=== PATIENT | female | born 1990 | race Caucasian/White ===

== ENCOUNTER 2017-05-25 09:41 | Emergency (ER) | payer SELFPAY ==
[2017-05-25 10:42] LABS: BASOPHILS 0.5 % (0-2); EOSINOPHILS 1.9 % (0-7); HEMATOCRIT 38.2 % (36.0-48.0); IMMATURE GRANULOCYTES 0.2 % (0-5); LYMPHOCYTES 45.5 % (15-50); MCH 29.5 pg (26.0-34.0); MCV 86.6 fL (80.0-100.0); MEAN PLATELET VOLUME 9.1 fL (7.4-10.4); MONOCYTES 7.5 % (2-11); NEUTROPHILS 44.4 % (40-80); RBC 4.41 10x6/uL (4.00-5.40); RDW 12.1 % (11.5-14.5); WBC 4.2 10x3/uL (4.8-10.8)
[2017-05-25 10:48] LABS: PLATELET COUNT 175 10x3/uL (130-400)
[2017-05-25 11:14] LABS: ALBUMIN 4.1 g/dL (3.4-5.0); ALKALINE PHOSPHATASE 24 U/L (46-116); ALT (SGPT) 19 U/L (10-68); BILIRUBIN - TOTAL 0.65 mg/dL (0.2-1.3); CALC OSMOLALITY 276 mosm/kg (275-300); CALCIUM 9.4 mg/dL (8.5-10.1); CARBON DIOXIDE 28.9 mmol/L (21.0-32.0); CHLORIDE - SERUM 102 mmol/L (98-107); CREATININE - SERUM 0.8 mg/dL (0.6-1.3); GLUCOSE 85 mg/dL (74-106); POTASSIUM - SERUM 3.7 mmol/L (3.5-5.1); PROTEIN - SERUM 7.7 g/dL (6.4-8.2); SODIUM 140 mmol/L (136-145); UREA NITROGEN 11 mg/dL (7-18); eGFR NON AFRICAN AMERICAN > 90 mL/min (90-120)
[2017-05-25 11:37] LABS: APPEARANCE CLEAR (CLEAR); BILIRUBIN NEGATIVE (NEGATIVE); COLOR YELLOW (YELLOW); GLUCOSE NEGATIVE (NEGATIVE); KETONE NEGATIVE (NEGATIVE); NITRITE NEGATIVE (NEGATIVE); PROTEIN NEGATIVE (NEGATIVE); SPECIFIC GRAVITY 1.015 (1.005-1.020); UROBILINOGEN NORMAL (NORMAL)
[2017-05-25 11:38] LABS: BACTERIA FEW /hpf (NONE SEEN); EPITHELIAL CELLS OCC /hpf (0-5); MUCUS <1+ /lpf (NONE SEEN); RED CELLS - URINE OCC /hpf (0-5); WHITE CELLS - URINE OCC /hpf (0-5)
== END 2017-05-25 14:58 | disposition home or self-care (01) ==
LOC: D.ER 09:41
PROVIDERS: Emergency Medicine
DX: R33.9 Retention of urine, unspecified (principal); N30.90 Cystitis, unspecified without hematuria; R10.30 Lower abdominal pain, unspecified

== ENCOUNTER 2017-09-24 19:37 | Emergency (ER) | payer MEDICAID ==
[~2017-09-24] VITALS: Ht 175.3 cm; Wt 48.6 kg
[2017-09-24 19:48] VITALS: Ht 175.3 cm; Wt 48.6 kg
[2017-09-24] MEDS ORDERED: CLEOCIN HCL300 MG (19:50)
[2017-09-24] MEDS ORDERED: PERCOCET 5-3251 TAB (19:51)
[2017-09-24] MEDS ORDERED: TORADOL10 MG PO (22:08)
[2017-09-24 22:37] VITALS: BP 117/75
== END 2017-09-24 22:38 | disposition home or self-care (01) ==
LOC: D.ER 19:37
DX: T81.31XA Disruption of external operation (surgical) wound, not elsewhere classified, initial encounter (principal); N32.89 Other specified disorders of bladder

== ENCOUNTER 2019-04-18 17:14 | Observation (INO) | payer OTHER ==
[~2019-04-18] VITALS: Ht 175.3 cm; Wt 48.6 kg
[2019-04-18 00:30] VITALS: BP 102/51
[~2019-04-18 17:14] MED LIST: CLEOCIN HCL300 MG; PERCOCET 5-3251 TAB; TORADOL10 MG PO
[2019-04-18 17:27] VITALS: BP 108/71
[2019-04-18 17:40] LABS: BASOPHILS 0.2 % (0-2); EOSINOPHILS 0.9 % (0-7); HEMATOCRIT 36.5 % (36.0-48.0); HEMOGLOBIN 12.6 g/dL (12-16); IMMATURE GRANULOCYTES 0.2 % (0-5); LYMPHOCYTES 32.3 % (15-50); MCH 29.7 pg (26.0-34.0); MCHC 34.5 g/dL (31.0-37.0); MCV 86.1 fL (80.0-100.0); MEAN PLATELET VOLUME 9.7 fL (7.4-10.4); NEUTROPHILS 59.4 % (40-80); PLATELET COUNT 210 10x3/uL (130-400); RBC 4.24 10x6/uL (4.00-5.40); RDW 12.8 % (11.5-14.5); WBC 5.3 10x3/uL (4.8-10.8)
[2019-04-18 17:49] LABS: APTT 29.4 SECONDS (22.8-39.4); INR 0.97 (0.85-1.17); PROTIME 12.8 SECONDS (11.6-15.0)
[2019-04-18 17:51] LABS: CALC OSMOLALITY 279 mosm/kg (275-300); CALCIUM 9.2 mg/dL (8.5-10.1); CARBON DIOXIDE 26.6 mmol/L (21.0-32.0); CHLORIDE - SERUM 105 mmol/L (98-107); CREATININE - SERUM 0.8 mg/dL (0.6-1.3); GLUCOSE 91 mg/dL (74-106); POTASSIUM - SERUM 3.7 mmol/L (3.5-5.1); SODIUM 141 mmol/L (136-145); UREA NITROGEN 11 mg/dL (7-18); eGFR NON AFRICAN AMERICAN 90 mL/min (90-120)
[2019-04-18 18:08] LABS: ALBUMIN 4.2 g/dL (3.4-5.0); ALKALINE PHOSPHATASE 34 U/L (30-120); ALT (SGPT) 19 U/L (10-68); BILIRUBIN - TOTAL 0.67 mg/dL (0.2-1.3); CKMB 0.4 U/L (0.0-3.6); CREATINE KINASE 113 UL (21-215); MAGNESIUM - SERUM 2.2 mg/dL (1.8-2.4); PROTEIN - SERUM 8.1 g/dL (6.4-8.2)
[2019-04-18 18:10] LABS: TROPONIN-I < 0.017 ng/mL (0.000-0.060)
--- NOTE | 2019-04-18 19:11 | NUR ---
BS REPORT TO TROY GUPTA
[2019-04-18 19:33] VITALS: BP 110/73
--- NOTE | 2019-04-18 19:56 | NUR ---
REPORT CALLED TO GONZÁLEZ, ROOM DIRTY AT THIS TIME.
[2019-04-18 20:30] VITALS: BP 148/81
--- NOTE | 2019-04-18 20:32 | NUR ---
PT'S ROOM ON FLOOR STILL DIRTY AT THIS TIME.
[2019-04-18 20:51] VITALS: BP 101/65
[2019-04-18 23:30] VITALS: BP 88/60; BMI 15.8
[2019-04-19 06:50] LABS: BASOPHILS 0.2 % (0-2); EOSINOPHILS 1.7 % (0-7); HEMATOCRIT 33.8 % (36.0-48.0); HEMOGLOBIN 11.1 g/dL (12-16); IMMATURE GRANULOCYTES 0.2 % (0-5); LYMPHOCYTES 45.9 % (15-50); MCH 28.8 pg (26.0-34.0); MCHC 32.8 g/dL (31.0-37.0); MCV 87.8 fL (80.0-100.0); MEAN PLATELET VOLUME 9.7 fL (7.4-10.4); MONOCYTES 7.9 % (2-11); NEUTROPHILS 44.1 % (40-80); RBC 3.85 10x6/uL (4.00-5.40); RDW 12.8 % (11.5-14.5); WBC 4.1 10x3/uL (4.8-10.8)
[2019-04-19 07:01] LABS: PLATELET COUNT 165 10x3/uL (130-400)
[2019-04-19 07:37] LABS: CALC OSMOLALITY 282 mosm/kg (275-300); CALCIUM 8.8 mg/dL (8.5-10.1); CARBON DIOXIDE 28.1 mmol/L (21.0-32.0); CHLORIDE - SERUM 107 mmol/L (98-107); CREATININE - SERUM 0.9 mg/dL (0.6-1.3); GLUCOSE 101 mg/dL (74-106); MAGNESIUM - SERUM 2.2 mg/dL (1.8-2.4); PHOSPHOROUS 4.8 mg/dL (2.5-4.9); SODIUM 142 mmol/L (136-145); UREA NITROGEN 13 mg/dL (7-18); eGFR NON AFRICAN AMERICAN 78 mL/min (90-120)
[2019-04-19 07:38] LABS: TROPONIN-I < 0.017 ng/mL (0.000-0.060)
[2019-04-19 09:08] VITALS: BP 92/57
[2019-04-19 10:32] LABS: APPEARANCE SL CLDY (CLEAR); BILIRUBIN NEGATIVE (NEGATIVE); COLOR YELLOW (YELLOW); GLUCOSE NEGATIVE (NEGATIVE); KETONE NEGATIVE (NEGATIVE); NITRITE NEGATIVE (NEGATIVE); PROTEIN TRACE mg/dL (NEGATIVE); SPECIFIC GRAVITY 1.025 (1.005-1.020); UROBILINOGEN NORMAL (NORMAL)
[2019-04-19 10:34] LABS: BACTERIA FEW /hpf (NEGATIVE); EPITHELIAL CELLS 0-5 /hpf (0-5); RED CELLS - URINE 0-5 /hpf (0-5)
[2019-04-19 10:40] LABS: UDS - AMPHET NEGATIVE QUAL (NEGATIVE); UDS - BARB NEGATIVE QUAL (NEGATIVE); UDS - BENZO NEGATIVE QUAL (NEGATIVE); UDS - COCAINE NEGATIVE QUAL (NEGATIVE); UDS - OPIATE POSITIVE QUAL (NEGATIVE); UDS - PCP NEGATIVE QUAL (NEGATIVE); UDS - THC NEGATIVE QUAL (NEGATIVE)
[2019-04-19 12:20] VITALS: Ht 175.3 cm; Wt 48.6 kg
[2019-04-19 12:51] VITALS: BP 83/46
[2019-04-19 16:40] VITALS: BP 87/49
--- NOTE | 2019-04-19 17:23 | NUR ---
I have reviewed this patient and I concur with the Shift Assessment completed by the Licensed Practical Nurse today this shift.
[2019-04-19 20:30] VITALS: BP 92/53
[2019-04-20 00:45] VITALS: BP 88/45
[2019-04-20 04:48] VITALS: BP 91/55
[2019-04-20 06:15] LABS: BASOPHILS 0.2 % (0-2); EOSINOPHILS 2.1 % (0-7); HEMATOCRIT 36.1 % (36.0-48.0); HEMOGLOBIN 11.8 g/dL (12-16); IMMATURE GRANULOCYTES 0.2 % (0-5); LYMPHOCYTES 43.2 % (15-50); MCH 29.1 pg (26.0-34.0); MCHC 32.7 g/dL (31.0-37.0); MCV 88.9 fL (80.0-100.0); MEAN PLATELET VOLUME 9.4 fL (7.4-10.4); NEUTROPHILS 47.3 % (40-80); PLATELET COUNT 176 10x3/uL (130-400); RBC 4.06 10x6/uL (4.00-5.40); RDW 12.8 % (11.5-14.5); WBC 4.3 10x3/uL (4.8-10.8)
[2019-04-20 06:30] LABS: CALC OSMOLALITY 277 mosm/kg (275-300); CARBON DIOXIDE 30.1 mmol/L (21.0-32.0); CHLORIDE - SERUM 104 mmol/L (98-107); CREATININE - SERUM 0.9 mg/dL (0.6-1.3); GLUCOSE 96 mg/dL (74-106); MAGNESIUM - SERUM 2.3 mg/dL (1.8-2.4); PHOSPHOROUS 4.5 mg/dL (2.5-4.9); POTASSIUM - SERUM 4.4 mmol/L (3.5-5.1); SODIUM 140 mmol/L (136-145); UREA NITROGEN 11 mg/dL (7-18); eGFR NON AFRICAN AMERICAN 78 mL/min (90-120)
--- NOTE | 2019-04-20 07:40 | NUR ---
ALERT AND ORIENTED. TELEMERTY SHOWS SR AT 73. NS AT 100 INFUSING TO RIGHT AC. UP AB KEVIN. ON ROOM AIR. NO COMPLAINTS VOICED.WILL MONITOR
[2019-04-20 09:18] VITALS: BP 81/41
[2019-04-20] MEDS ORDERED: LEXAPRO10 MG PO (11:12)
[2019-04-20] MEDS ORDERED: PYRIDIUM100 MG PO (11:13)
[2019-04-20] MEDS ORDERED: LOPRESSOR25 MG PO (11:13)
[2019-04-20] MEDS ORDERED: BACTRIM 400-801 TAB PO (11:13)
--- NOTE | 2019-04-20 14:20 | NUR ---
PT DISCHARGED. IV DCD WITH TIP ITACT. DISCHARGE INSTRUCTIONS GIVEN TO PT. TO PRIVATE CAR PER WHEEL CHAIR
== END 2019-04-20 14:22 | disposition home or self-care (01) ==
LOC: D.ER 17:14 → D.M2 18:23 → OBSVTIME 19:52 → D.M2 04-20 14:22
PROVIDERS: Family Medicine; ADMIT Internal Medicine Nephrology; ATTEND Internal Medicine Nephrology
DX: I47.1 Supraventricular tachycardia (principal); D64.9 Anemia, unspecified; J45.909 Unspecified asthma, uncomplicated; G47.00 Insomnia, unspecified; I45.10 Unspecified right bundle-branch block; N39.0 Urinary tract infection, site not specified; I48.92 Unspecified atrial flutter

== ENCOUNTER 2019-04-22 01:22 | Observation (INO) | payer OTHER ==
[~2019-04-22] VITALS: Ht 175.3 cm; Wt 50.3 kg
--- NOTE | ~2019-04-22 | CN ---
PATIENT NAME:ANUSHA JOSUE MEDICAL RECORD: [id number] : 88 LOCATION:D. D.2119 ADMIT DATE: 04/22/19 ACCOUNT: [id number] CONSULTING PHYSICIAN: PEDRO LUIS BUTTS MD REFERRING PHYSICIAN: TRANG BARNES MD DATE OF CONSULTATION: 04/22/2019 DIAGNOSES: 1. Syncope. 2. Palpitations. HISTORY OF PRESENT ILLNESS: Mrs. Josue was recently in the hospital with palpitations, started on metoprolol 25 mg b.i.d. She got discharged, she had an episode of syncope. When she had the syncope, her systolic blood pressure was in the 60s. She had 3 doses of metoprolol prior to this. She has not had any further palpitations. PHYSICAL EXAMINATION: CONSTITUTIONAL/GENERAL APPEARANCE: Well nourished, well developed, appears stated age. EYES: Lids and conjunctivae noninjected. No discharge. No pallor. ENT: Lips within normal limit. No cyanosis. No pallor. NECK: Carotid arteries, bilateral normal upstroke. No bruits. No thrills. No jugular venous pressure or distention. CERVICAL LYMPH NODES: Nontender. Nonenlarged. THYROID: Not enlarged. No nodules. CARDIOVASCULAR: Precordial exam, nondisplaced. No heaves or pericardial thrills. Rate and rhythm, regular. Heart sounds, normal S1, normal S2. No S3, no gallop, no rub. Systolic murmur, not heard. Diastolic murmur, not heard. RESPIRATORY: Respiratory effort, unlabored. Normal curvature. No thoracic deformity. No chest wall tenderness. Percussion, resonant. Auscultation, clear. No wheezes, no rales, no rhonchi. ABDOMEN: Soft, nondistended, nontender. No abdominal pain, no vomiting and normal appetite. MUSCULOSKELETAL: No joint tenderness, normal gait, normal tone. SKIN: Warm and dry. OVERALL IMPRESSION: Hypotension in relationship to the metoprolol that she is on for syncope. We will discontinue the metoprolol, put her on digoxin 0.25 mg every day. See her back at scheduled followup. We will get a multiday monitor as well. TRANSINT:[id number] Voice Confirmation ID: [id number] DOCUMENT ID: [id number] PEDRO LUIS BUTTS MD CC: [id number] DICTATION DATE: 04/22/19 1101 FOOD SERVICE SUPERVISOR: 04/22/19 1132 ADM IN [facility] [address] [place] [place] [address]
[~2019-04-22 01:22] MED LIST changes: +BACTRIM 400-801 TAB PO; +LEXAPRO10 MG PO; +LOPRESSOR25 MG PO; +PYRIDIUM100 MG PO
[2019-04-22 01:48] LABS: BASOPHILS 0.1 % (0-2); EOSINOPHILS 1.3 % (0-7); HEMATOCRIT 36.7 % (36.0-48.0); HEMOGLOBIN 12.2 g/dL (12-16); IMMATURE GRANULOCYTES 0.1 % (0-5); LYMPHOCYTES 37.4 % (15-50); MCH 29.2 pg (26.0-34.0); MCHC 33.2 g/dL (31.0-37.0); MCV 87.8 fL (80.0-100.0); MEAN PLATELET VOLUME 9.5 fL (7.4-10.4); MONOCYTES 6.1 % (2-11); PLATELET COUNT 209 10x3/uL (130-400); RBC 4.18 10x6/uL (4.00-5.40); RDW 12.9 % (11.5-14.5); WBC 6.8 10x3/uL (4.8-10.8)
[2019-04-22 01:56] LABS: CALC OSMOLALITY 285 mosm/kg (275-300); CALCIUM 9.3 mg/dL (8.5-10.1); CARBON DIOXIDE 28.4 mmol/L (21.0-32.0); CHLORIDE - SERUM 106 mmol/L (98-107); CREATININE - SERUM 0.8 mg/dL (0.6-1.3); GLUCOSE 97 mg/dL (74-106); SODIUM 144 mmol/L (136-145); UREA NITROGEN 11 mg/dL (7-18); eGFR NON AFRICAN AMERICAN 90 mL/min (90-120)
[2019-04-22 02:02] LABS: POTASSIUM - SERUM 3.3 mmol/L (3.5-5.1)
[2019-04-22 02:12] LABS: ALBUMIN 4.1 g/dL (3.4-5.0); ALKALINE PHOSPHATASE 31 U/L (30-120); ALT (SGPT) 17 U/L (10-68); BILIRUBIN - TOTAL 0.36 mg/dL (0.2-1.3); MAGNESIUM - SERUM 2.1 mg/dL (1.8-2.4); PRO BNP 84 pg/mL (0-125); PROTEIN - SERUM 7.7 g/dL (6.4-8.2); THYROID STIMULATING HORMONE 3.33 uIU/mL (0.36-3.74); TROPONIN-I < 0.017 ng/mL (0.000-0.060)
[2019-04-22 02:25] LABS: APPEARANCE CLEAR (CLEAR); BILIRUBIN NEGATIVE (NEGATIVE); COLOR YELLOW (YELLOW); GLUCOSE NEGATIVE (NEGATIVE); HCG URINE NEGATIVE (NEGATIVE); KETONE NEGATIVE (NEGATIVE); NITRITE NEGATIVE (NEGATIVE); PROTEIN NEGATIVE (NEGATIVE); SPECIFIC GRAVITY 1.015 (1.005-1.020); UROBILINOGEN NORMAL (NORMAL)
[2019-04-22 02:30] VITALS: BP 111/77
[2019-04-22 02:32] LABS: UDS - AMPHET NEGATIVE QUAL (NEGATIVE); UDS - BARB NEGATIVE QUAL (NEGATIVE); UDS - BENZO NEGATIVE QUAL (NEGATIVE); UDS - COCAINE NEGATIVE QUAL (NEGATIVE); UDS - OPIATE NEGATIVE QUAL (NEGATIVE); UDS - PCP NEGATIVE QUAL (NEGATIVE); UDS - THC NEGATIVE QUAL (NEGATIVE)
--- NOTE | 2019-04-22 02:37 | NUR ---
PT RESTING ON BED, EYES CLOSED. NO S/S OF ACUTE DISTRESS NOTED AT THIS TIME.
[2019-04-22 03:30] VITALS: BP 104/67
--- NOTE | 2019-04-22 04:10 | NUR ---
ADMIT TO ROOM 2119 FROM ER VIA WHEELCHAIR. ALERT/ORIENTED. SOME DIFFICULTY FOCUSING DUE TO RECIEVING IV ATIVAN WHILE IN ER. ADMISSION HISTORY AND ASSESSMENT COMPLETED. HOME MEDS REVIEWED AND UPDATED. TELEMETRY STARTED .
[2019-04-22 04:24] VITALS: BP 98/65; BMI 16.3
--- NOTE | 2019-04-22 07:20 | NUR ---
RECIEVE REPORT. RESTING IN BED WITH EYES CLOSED. RESPIRATIONS EVEN AND REGULAR. NO SIGNS OF DISTRESS. CONTINUE PLAN OF CARE AND SAFETY PRECAUTIONS.
[2019-04-22 09:32] VITALS: BP 106/70
[2019-04-22 10:55] VITALS: Ht 175.3 cm; Wt 50.3 kg
[2019-04-22] MEDS ORDERED: LANOXIN125 MCG PO (11:31)
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
[2019-04-22 12:37] VITALS: BP 102/66; BP 102/69; BP 94/57
--- NOTE | 2019-04-22 13:05 | NUR ---
ALERT AND ORIENTED X4. SITTING UP IN BED. POTASSIUM ADMINISTERED PER PROTOCOL. DC RT WRIST IV TIP INTACT. DISCHARGE INSTRUCTIONS GIVEN VERBALLY AND WRITTEN. DISCHARGE PAPERS SIGNED ON CHART. ESCORT TO RIDE VIA WHEELCHAIR. REMAINS FREE FROM INJURY.
== END 2019-04-22 13:08 | disposition home or self-care (01) ==
LOC: D.ER 01:22 → D.M2 03:27 → OBSVTIME 03:27 → D.M2 13:08
PROVIDERS: Family Medicine; ADMIT Internal Medicine Nephrology; ATTEND Internal Medicine Nephrology
DX: R55 Syncope and collapse (principal); R00.2 Palpitations; J45.909 Unspecified asthma, uncomplicated; G47.00 Insomnia, unspecified; E87.6 Hypokalemia; I95.2 Hypotension due to drugs; T44.7X5A Adverse effect of beta-adrenoreceptor antagonists, initial encounter

== ENCOUNTER 2019-06-17 11:25 | Emergency (ER) | payer OTHER ==
[~2019-06-17] VITALS: Ht 175.3 cm; Wt 48.2 kg
[~2019-06-17 11:25] MED LIST changes: +LANOXIN125 MCG PO
[2019-06-17 11:31] VITALS: Ht 175.3 cm; Wt 48.2 kg
[2019-06-17 12:44] VITALS: BP 123/83
== END 2019-06-17 12:45 | disposition home or self-care (01) ==
LOC: D.ER 11:25
DX: R00.0 Tachycardia, unspecified (principal); R00.2 Palpitations; J45.909 Unspecified asthma, uncomplicated

== ENCOUNTER 2019-06-26 12:19 | Emergency (ER) | payer OTHER ==
[~2019-06-26] VITALS: Ht 175.3 cm; Wt 48.2 kg
[2019-06-26 12:26] VITALS: Ht 175.3 cm; Wt 48.2 kg
[2019-06-26 14:09] VITALS: BP 91/67
== END 2019-06-26 14:09 | disposition home or self-care (01) ==
LOC: D.ER 12:19
DX: R00.2 Palpitations (principal); R55 Syncope and collapse; I49.5 Sick sinus syndrome

== ENCOUNTER 2020-09-07 12:29 | Observation (INO) | payer OTHER ==
[~2020-09-07] VITALS: Ht 175.3 cm; Wt 50.0 kg
[2020-09-07 13:13] VITALS: BP 106/74
[2020-09-07 13:19] LABS: BASOPHILS 0.4 % (0-2); EOSINOPHILS 0.6 % (0-7); HEMATOCRIT 37.5 % (36.0-48.0); HEMOGLOBIN 12.9 g/dL (12-16); MCH 29.8 pg (26.0-34.0); MCHC 34.3 g/dL (31.0-37.0); MCV 86.9 fL (80.0-100.0); MEAN PLATELET VOLUME 7.9 fL (7.4-10.4); MONOCYTES 4.9 % (2-11); NEUTROPHILS 75.1 % (40-80); RBC 4.31 10x6/uL (4.00-5.40); RDW 12.7 % (11.5-14.5); WBC 4.8 10x3/uL (4.8-10.8)
[2020-09-07 13:22] LABS: PLATELET COUNT 203 10x3/uL (130-400)
[2020-09-07 13:27] LABS: CALC OSMOLALITY 281 mosm/kg (275-300); CALCIUM 9.2 mg/dL (8.5-10.1); CARBON DIOXIDE 28.6 mmol/L (21.0-32.0); CHLORIDE - SERUM 105 mmol/L (98-107); CREATININE - SERUM 0.8 mg/dL (0.6-1.3); GLUCOSE 92 mg/dL (74-106); POTASSIUM - SERUM 3.8 mmol/L (3.5-5.1); SODIUM 142 mmol/L (136-145); UREA NITROGEN 11 mg/dL (7-18); eGFR NON AFRICAN AMERICAN 89 mL/min (90-120)
[2020-09-07 13:31] LABS: HCG SERUM NEGATIVE (NEGATIVE)
[2020-09-07 13:37] LABS: ALBUMIN 4.4 g/dL (3.4-5.0); ALKALINE PHOSPHATASE 27 U/L (30-120); ALT (SGPT) 20 U/L (10-68); BILIRUBIN - TOTAL 0.74 mg/dL (0.2-1.3); MAGNESIUM - SERUM 2.2 mg/dL (1.8-2.4)
[2020-09-07 13:40] LABS: TROPONIN-I < 0.017 ng/mL (0.000-0.060)
[2020-09-07 16:44] VITALS: BP 120/73
[2020-09-07 17:09] VITALS: BMI 16.2
[2020-09-07] MEDS ORDERED: SEROQUEL50 MG PO (17:35)
[2020-09-07] MEDS ORDERED: EFFEXOR XR37.5 MG PO (17:39)
[2020-09-07] MEDS ORDERED: ZOFRAN4 MG PO (17:41)
[2020-09-07] MEDS ORDERED: EMGALITY (17:41)
[2020-09-07] MEDS ORDERED: PROVERA10 MG PO (17:42)
[2020-09-07] MEDS ORDERED: VIVELLE (17:45)
[2020-09-07 19:27] LABS: CKMB 0.2 U/L (0.0-3.6); CREATINE KINASE 83 UL (21-215)
[2020-09-07 19:32] LABS: TROPONIN-I < 0.017 ng/mL (0.000-0.060)
[2020-09-07 20:00] VITALS: BP 100/63
--- NOTE | 2020-09-07 20:00 | NUR ---
INITIAL ROUNDS AND ASSESSMENT COMPLETED. PT ALERT/ORIENTED/UP ADLIB IN ROOM. DENIES PAIN OR DISCOMFORT. IVF NS @ 75ML/HR INFUSING TO RFA. NONLABORED RESPIRATIONS ON ROOM AIR. CALL LIGHT IN REACH. NO NEEDS AT THIS TIME.
[2020-09-07 20:14] VITALS: Ht 175.3 cm; Wt 50.0 kg
[2020-09-08 01:15] VITALS: BP 103/58
[2020-09-08 01:59] LABS: CKMB 0.1 U/L (0.0-3.6); CREATINE KINASE 78 UL (21-215); TROPONIN-I < 0.017 ng/mL (0.000-0.060)
--- NOTE | 2020-09-08 05:58 | NUR ---
NO CHANGE FROM INITIAL SHIFT ASSESSMENT. PT DECLINED SEROQUEL AT BEDTIME SAYING SHE ONLY TAKES IT NEEDED. IVF INFUSING. NO REQUESTED PAIN OR PRN MEDS. NPO UNTIL SEEN BY [employer] INSTRUCTOR.
[2020-09-08 06:09] VITALS: BP 106/68
[2020-09-08 06:31] LABS: BASOPHILS 0.5 % (0-2); EOSINOPHILS 1.8 % (0-7); HEMATOCRIT 31.6 % (36.0-48.0); HEMOGLOBIN 10.8 g/dL (12-16); LYMPHOCYTES 47.3 % (15-50); MCHC 34.1 g/dL (31.0-37.0); MEAN PLATELET VOLUME 7.7 fL (7.4-10.4); MONOCYTES 6.1 % (2-11); NEUTROPHILS 44.3 % (40-80); PLATELET COUNT 172 10x3/uL (130-400); RBC 3.59 10x6/uL (4.00-5.40); RDW 12.7 % (11.5-14.5)
[2020-09-08 06:55] LABS: ALBUMIN 3.4 g/dL (3.4-5.0); ALKALINE PHOSPHATASE 21 U/L (30-120); CALC OSMOLALITY 282 mosm/kg (275-300); CALCIUM 8.7 mg/dL (8.5-10.1); CARBON DIOXIDE 29.8 mmol/L (21.0-32.0); CHLORIDE - SERUM 109 mmol/L (98-107); CREATININE - SERUM 0.8 mg/dL (0.6-1.3); GLUCOSE 87 mg/dL (74-106); MAGNESIUM - SERUM 1.9 mg/dL (1.8-2.4); PHOSPHOROUS 4.3 mg/dL (2.5-4.9); POTASSIUM - SERUM 3.8 mmol/L (3.5-5.1); SODIUM 143 mmol/L (136-145); UREA NITROGEN 11 mg/dL (7-18); eGFR NON AFRICAN AMERICAN 89 mL/min (90-120)
[2020-09-08 06:57] LABS: ALT (SGPT) 14 U/L (10-68)
[2020-09-08 07:44] VITALS: BP 100/66
[2020-09-08] MEDS ORDERED: COREG 3.1253.125 MG PO (08:03)
[2020-09-08 08:38] LABS: CREATINE KINASE 77 UL (21-215); TROPONIN-I < 0.017 ng/mL (0.000-0.060)
--- NOTE | 2020-09-08 10:46 | NUR ---
PT LEFT UNIT VIA WHEELCHAIR, WITH ALL BELONGINGS, NAD NOTED.
== END 2020-09-08 10:46 | disposition home or self-care (01) ==
LOC: D.ER 12:29 → OBSVTIME 13:57 → D.EDHOLD 13:57 → D.M2 15:16
PROVIDERS: Family Medicine; ADMIT Family Medicine; ATTEND Family Medicine
DX: I49.5 Sick sinus syndrome (principal); R07.9 Chest pain, unspecified; R00.2 Palpitations; F41.9 Anxiety disorder, unspecified; R55 Syncope and collapse; I47.1 Supraventricular tachycardia